=== PATIENT | female | born 1990 | race American Indian/Alaskan Native ===

== ENCOUNTER 2019-01-09 10:08 | Emergency (ER) | payer MEDICAID ==
[2019-01-09 10:14] VITALS: BP 147/97
[2019-01-09] MEDS ORDERED: DUONEB *Not for PRN Use IH ONE (10:21)
[2019-01-09] MEDS ORDERED: SOLU-Medrol IV ONE (10:21)
[2019-01-09] MEDS ORDERED: MAGNESIUM SULFATE 2GM/50ML 2 GM/50 ML BAG IV ONE (10:21)
--- NOTE | 2019-01-09 10:26 | Emergency Department Report ---
ED General Adult HPI - General Chief complaint: Dyspnea/Respdistress Stated complaint: ROLDAN Time Seen by Provider: 01/09/19 10:17 Source: patient Mode of arrival: Ambulatory Limitations: No Limitations - History of Present Illness Initial comments: 28-year-old female with worsening asthma for 2 weeks. She states that she ultimately ran out of her medicine but wasn't able to get an appointment with her physician. She relates some chest tightness related to her wheezing which is nonpleuritic and nonradiating. She states that she coughs productive of a clear sputum. She's had no fever or chills leg pain or swelling. She denies other medical history other than asthma. She states her menses have been normal. -: Gradual, week(s) Location: chest Radiation: non-radiation Quality: other Consistency: now resolved Improves with: none Worsens with: other (wheezing) Associated Symptoms: denies other symptoms, chest pain, cough Treatments Prior to Arrival: none (ran out of medicine) - Related Data Previous Rx's Medication Instructions Recorded Last Taken Type ALBUTEROL NEB's [Proventil 0.083% 2.5 mg IH TID PRN #60 neb 01/09/19 Unknown Rx NEBS] Albuterol Sulfate [Proventil Hfa] 6.7 gm IH Q4H PRN #1 hfa.aer.ad 01/09/19 Unknown Rx Azithromycin [Zithromax Z-PEÑA] 250 mg PO DAILY #1 tablet 01/09/19 Unknown Rx Mometasone Furoate [Asmanex Hfa] 13 gm IH DAILY #1 hfa.aer.ad 01/09/19 Unknown Rx predniSONE [Deltasone] 40 mg PO QDAY #14 tab 01/09/19 Unknown Rx Allergies Allergy/AdvReac Type Severity Reaction Status Date / Time No Known Allergies Allergy Unverified 01/09/19 10:10 ED Review of Systems ROS: Stated complaint: ROLDAN Other details as noted in HPI Constitutional: denies: chills, fever Eyes: denies: eye pain, eye discharge, vision change ENT: denies: ear pain, throat pain Respiratory: cough (clear sputum), wheezing. denies: shortness of breath Cardiovascular: as per HPI, chest pain. denies: palpitations Endocrine: no symptoms reported Gastrointestinal: denies: abdominal pain, nausea, diarrhea Genitourinary: denies: urgency, dysuria, discharge Musculoskeletal: denies: back pain, joint swelling, arthralgia Skin: denies: rash, lesions Neurological: denies: headache, weakness, paresthesias Psychiatric: denies: anxiety, depression Hematological/Lymphatic: denies: easy bleeding, easy bruising ED Past Medical Hx - Past Medical History Hx Asthma: Yes - Social History Smoking Status: Never Smoker Substance Use Type: None - Medications Home Medications: Home Medications Medication Instructions Recorded Confirmed Last Taken Type ALBUTEROL NEB's [Proventil 0.083% 2.5 mg IH TID PRN #60 neb 01/09/19 Unknown Rx NEBS] Albuterol Sulfate [Proventil Hfa] 6.7 gm IH Q4H PRN #1 hfa.aer.ad 01/09/19 Unknown Rx Azithromycin [Zithromax Z-PEÑA] 250 mg PO DAILY #1 tablet 01/09/19 Unknown Rx Mometasone Furoate [Asmanex Hfa] 13 gm IH DAILY #1 hfa.aer.ad 01/09/19 Unknown Rx predniSONE [Deltasone] 40 mg PO QDAY #14 tab 01/09/19 Unknown Rx ED Physical Exam - General Limitations: No Limitations General appearance: alert, in no apparent distress - Head Head exam: Present: atraumatic, normocephalic - Eye Eye exam: Present: normal appearance - ENT ENT exam: Present: mucous membranes moist - Neck Neck exam: Present: normal inspection - Respiratory Respiratory exam: Present: wheezes (bilateral), prolonged expiratory. Absent: respiratory distress - Cardiovascular Cardiovascular Exam: Present: regular rate, normal rhythm. Absent: systolic murmur, diastolic murmur, rubs, gallop - GI/Abdominal GI/Abdominal exam: Present: soft, normal bowel sounds. Absent: distended, tenderness, guarding - Extremities Exam Extremities exam: Present: normal inspection. Absent: tenderness, pedal edema, calf tenderness - Back Exam Back exam: Present: normal inspection - Neurological Exam Neurological exam: Present: alert, oriented X3, CN II-XII intact. Absent: motor sensory deficit - Psychiatric Psychiatric exam: Present: normal affect, normal mood - Skin Skin exam: Present: warm, dry, intact, normal color. Absent: rash ED Course Vital Signs 01/09/19 01/09/19 01/09/19 10:11 10:25 12:55 Temperature 98.4 F Pulse Rate 109 H 107 H Pulse Rate [ 103 H Posterior Bilateral Throughout] Respiratory 22 Rate Respiratory 22 Rate [Posterior Bilateral Throughout] Blood Pressure 147/97 O2 Sat by Pulse 93 95 Oximetry - Reevaluation(s) Reevaluation #1: Wheezing much improved. Patient was road tested. She did not get short of breath or exacerbate. She stated she was ready to go home. She had minimal residual wheeze on the left greater than right but no rales or rhonchi. 01/09/19 13:31 Critical care attestation.: If time is entered above; I have spent that time in minutes in the direct care of this critically ill patient, excluding procedure time. ED Disposition Clinical Impression: Exacerbation of asthma Qualifiers: Asthma severity: moderate Asthma persistence: persistent Qualified Code(s): J45.41 - Moderate persistent asthma with (acute) exacerbation Disposition: DC- TO HOME OR SELFCARE Is pt being admited?: No Does the pt Need Aspirin: No Condition: Stable Instructions: Asthma (ED) Additional Instructions: Return any acute change or worsening symptoms. Rx as directed. Prescriptions: Mometasone Furoate [Asmanex Hfa] 13 gm IH DAILY #1 hfa.aer.ad predniSONE [Deltasone] 40 mg PO QDAY #14 tab ALBUTEROL NEB's [Proventil 0.083% NEBS] 2.5 mg IH TID PRN #60 neb PRN Reason: Wheezing Albuterol Sulfate [Proventil Hfa] 6.7 gm IH Q4H PRN #1 hfa.aer.ad PRN Reason: Wheezing Azithromycin [Zithromax Z-PEÑA] 250 mg PO DAILY #1 tablet Referrals: KOLE NICOLE MD [Primary Care Provider] - 2-3 Days [facility] [Provider Group] - 3-5 Days Time of Disposition: 13:34
[2019-01-09] MEDS ORDERED: PROVENTIL IH ONE (11:56)
== END 2019-01-09 14:07 | disposition home or self-care (01) ==
LOC: ED 10:08
DX: J45.901 Unspecified asthma with (acute) exacerbation (principal); Z79.899 Other long term (current) drug therapy
CPT/HCPCS: 93005; 93010; 94640; 96365; 96375; 99283; J2930; J3475; 94644

== ENCOUNTER 2019-04-03 12:32 | Emergency (ER) | payer MEDICAID ==
[2019-04-03] MEDS ORDERED: dexAMETHasone 20 MG/5 ML VIAL IM ONE (12:36)
[2019-04-03] MEDS ORDERED: IPRATROPIUM 0.02% NEBU 2.5 ML IH ONE (12:36)
[2019-04-03] MEDS ORDERED: ALBUTEROL 2.5 MG/3 ML NEBU IH ONE (12:36)
--- NOTE | 2019-04-03 12:36 | Emergency Department Report ---
Blank Doc - Documentation Documentation: 28-year-old female that presents with SOB with wheezing. This initial assessment/diagnostic orders/clinical plan/treatment(s) is/are subject to change based on patient's health status, clinical progression and re- assessment by fellow clinical providers in the ED. Further treatment and workup at subsequent clinical providers discretion. Patient/guardians urged not to elope from the ED as their condition may be serious if not clinically assessed and managed. Initial orders include: 1- Patient sent to [facility] for further evaluation and treatment 2- breathing treatment/steroids
--- NOTE | 2019-04-03 13:00 | Emergency Department Report ---
ED General Adult HPI - General Chief complaint: Dyspnea/Respdistress Stated complaint: SOB/CP/ASTHMA Time Seen by Provider: 04/03/19 12:35 Source: patient Mode of arrival: Ambulatory Limitations: No Limitations - History of Present Illness Initial comments: This is a 28-year-old female with asthma who states that she couldn't find her inhaler this morning. She states that her asthma had flared up since 8 AM. She reports having to come to the emergency department for asthma before. She states she's never been hospitalized. She is not currently on steroids. She does not have a home neb machine. -: hour(s) Improves with: none Worsens with: none Associated Symptoms: denies other symptoms, cough (nonproductive) - Related Data Previous Rx's Medication Instructions Recorded Last Taken Type ALBUTEROL NEB's [Proventil 0.083% 2.5 mg IH TID PRN #60 neb 04/03/19 Unknown Rx NEBS] Albuterol Sulfate [Proventil Hfa] 6.7 gm IH Q4H PRN #1 hfa.aer.ad 04/03/19 Unknown Rx Azithromycin [Zithromax Z-PEÑA] 250 mg PO DAILY #1 tablet 04/03/19 Unknown Rx Mometasone Furoate [Asmanex Hfa] 13 gm IH DAILY #1 hfa.aer.ad 04/03/19 Unknown Rx predniSONE [Deltasone] 60 mg PO QDAY #20 tab 04/03/19 Unknown Rx Allergies Allergy/AdvReac Type Severity Reaction Status Date / Time No Known Allergies Allergy Unverified 01/09/19 10:10 ED Review of Systems ROS: Stated complaint: SOB/CP/ASTHMA Other details as noted in HPI Constitutional: denies: chills, fever Eyes: denies: eye pain, eye discharge, vision change ENT: denies: ear pain, throat pain Respiratory: cough (occasional), wheezing Cardiovascular: denies: chest pain, palpitations Endocrine: no symptoms reported Gastrointestinal: denies: abdominal pain, nausea, diarrhea Genitourinary: denies: urgency, dysuria, discharge Musculoskeletal: denies: back pain, joint swelling, arthralgia Skin: denies: rash, lesions Neurological: denies: headache, weakness, paresthesias Psychiatric: denies: anxiety, depression Hematological/Lymphatic: denies: easy bleeding, easy bruising ED Past Medical Hx - Past Medical History Previous Medical History?: Yes Hx Asthma: Yes - Surgical History Past Surgical History?: Yes - Social History Smoking Status: Never Smoker Substance Use Type: None - Medications Home Medications: Home Medications Medication Instructions Recorded Confirmed Last Taken Type ALBUTEROL NEB's [Proventil 0.083% 2.5 mg IH TID PRN #60 neb 04/03/19 Unknown Rx NEBS] Albuterol Sulfate [Proventil Hfa] 6.7 gm IH Q4H PRN #1 hfa.aer.ad 04/03/19 Unknown Rx Azithromycin [Zithromax Z-PEÑA] 250 mg PO DAILY #1 tablet 04/03/19 Unknown Rx Mometasone Furoate [Asmanex Hfa] 13 gm IH DAILY #1 hfa.aer.ad 04/03/19 Unknown Rx predniSONE [Deltasone] 60 mg PO QDAY #20 tab 04/03/19 Unknown Rx ED Physical Exam - General Limitations: No Limitations General appearance: alert, in no apparent distress - Head Head exam: Present: atraumatic, normocephalic - Eye Eye exam: Present: normal appearance - ENT ENT exam: Present: mucous membranes moist - Neck Neck exam: Present: normal inspection - Respiratory Respiratory exam: Present: wheezes. Absent: normal lung sounds bilaterally, respiratory distress - Cardiovascular Cardiovascular Exam: Present: regular rate, normal rhythm. Absent: systolic murmur, diastolic murmur, rubs, gallop - GI/Abdominal GI/Abdominal exam: Present: soft, normal bowel sounds. Absent: distended, tend erness, guarding, rebound - Extremities Exam Extremities exam: Present: normal inspection. Absent: pedal edema, calf tenderness - Back Exam Back exam: Present: normal inspection - Neurological Exam Neurological exam: Present: alert, oriented X3, CN II-XII intact. Absent: motor sensory deficit - Psychiatric Psychiatric exam: Present: normal affect, normal mood - Skin Skin exam: Present: warm, dry, intact, normal color. Absent: rash ED Course Vital Signs 04/03/19 04/03/19 04/03/19 12:38 14:30 16:04 Temperature 97.5 F L Pulse Rate 113 H 94 H Respiratory 18 22 18 Rate Blood Pressure 148/126 Blood Pressure 149/96 [Right] O2 Sat by Pulse 100 92 96 Oximetry - Reevaluation(s) Reevaluation #1: Earlier the patient was offered admission as she had persistent wheezing. She declined. She is aware of the risks and benefits. She states she has no way to get childcare. She is here with her son. In addition, she did not want to be admitted. Patient was given an additional labs. Her pulse oximetry is now 96% on room air. Her blood pressure has improved. Her wheezing has improved. Chest x-ray showed no acute process. 04/03/19 16:30 Reevaluation #2: Accu-Chek is 107. 04/03/19 16:33 ED Medical Decision Making - Radiology Data Radiology results: image reviewed (no acute process) Critical care attestation.: If time is entered above; I have spent that time in minutes in the direct care of this critically ill patient, excluding procedure time. ED Disposition Clinical Impression: Acute severe exacerbation of asthma Disposition: DC-01 TO HOME OR SELFCARE Is pt being admited?: No Does the pt Need Aspirin: No Condition: Stable Instructions: Asthma (ED) Additional Instructions: Return as needed if treatment is not effective. Otherwise follow-up with [facility]. Prescriptions: Mometasone Furoate [Asmanex Hfa] 13 gm IH DAILY #1 hfa.aer.ad predniSONE [Deltasone] 60 mg PO QDAY #20 tab ALBUTEROL NEB's [Proventil 0.083% NEBS] 2.5 mg IH TID PRN #60 neb PRN Reason: Wheezing Albuterol Sulfate [Proventil Hfa] 6.7 gm IH Q4H PRN #1 hfa.aer.ad PRN Reason: Wheezing Azithromycin [Zithromax Z-PEÑA] 250 mg PO DAILY #1 tablet Referrals: PRIMARY CAREMD [Primary Care Provider] - 3-5 Days [facility] [Provider Group] - 24 Hours
[2019-04-03] MEDS ORDERED: IPRATROPIUM/ALBUTEROL SULFATE 3 ML AMPUL.NEB IH ONE (14:34)
[2019-04-03 16:47] VITALS: BP 144/94
--- NOTE | 2019-04-03 16:55 | XRay Report ---
CHEST 1 VIEW INDICATION / CLINICAL INFORMATION: hypertension. Wheezing COMPARISON: 05/03/2012 chest radiograph FINDINGS: SUPPORT DEVICES: None. HEART / MEDIASTINUM: No significant abnormality. LUNGS / PLEURA: No significant pulmonary or pleural abnormality. No pneumothorax. IMPRESSION: 1. No acute finding. Signer Name: Derik Del Toro MD Signed: 04/03/2019 4:51 PM Workstation Name: [id number]
== END 2019-04-03 16:46 | disposition home or self-care (01) ==
LOC: ED 12:32
DX: J45.901 Unspecified asthma with (acute) exacerbation (principal)
CPT/HCPCS: 71045; 82962; 96372; 99284; J1100

== ENCOUNTER 2020-05-21 00:14 | Emergency (ER) | payer SELFPAY ==
[2020-05-21] MEDS ORDERED: IPRATROPIUM 0.02% NEBU 2.5 ML IH ONE ×2 (00:24→00:25)
[2020-05-21] MEDS ORDERED: MAGNESIUM SULFATE 2 GM/50 ML BAG IV ONE (00:24)
[2020-05-21] MEDS ORDERED: ALBUTEROL 2.5 MG/3 ML NEBU IH ONE ×2 (00:24)
[2020-05-21] MEDS ORDERED: methylPREDNISolone Sod Succinate 125 MG/2 ML INJ IV ONE (00:24)
--- NOTE | 2020-05-21 00:28 | Emergency Department Report ---
ED Shortness of Breath HPI - General Chief Complaint: Dyspnea/Respdistress Stated Complaint: ROLDAN Time Seen by Provider: 05/21/20 00:20 Source: patient Mode of arrival: Ambulatory Limitations: No Limitations - History of Present Illness Initial Comments: 30-year-old female, history of asthma, presents to ED with wheezing and shortness of breath x1 day. 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 Believes this is what has triggered her asthma. Patient states she ran out of her albuterol inhaler on yesterday. She reports a cough which is typical when she has asthma exacerbations. She denies any fever, vomiting, diarrhea, loss of smell or taste, known exposure to anyone who is tested positive for COVID-19. Complaint: "asthma attack" -: days(s) (1) Severity: moderate Consistency: constant Improves With: nothing Worsens With: exertion Known History Of: asthma Context: allergen exposure Associated Symptoms: cough Treatments Prior to Arrival: none - Related Data Previous Rx's Medication Instructions Recorded Last Taken Type ALBUTEROL NEB's [Proventil 0.083% 2.5 mg IH TID PRN #60 neb 04/03/19 Unknown Rx NEBS] Albuterol Sulfate [Proventil Hfa] 6.7 gm IH Q4H PRN #1 hfa.aer.ad 04/03/19 Unknown Rx Amlodipine Besylate [Norvasc] 2.5 mg PO DAILY #30 tablet 04/03/19 Unknown Rx Azithromycin [Zithromax Z-PEÑA] 250 mg PO DAILY #1 tablet 04/03/19 Unknown Rx Mometasone Furoate [Asmanex Hfa] 13 gm IH DAILY #1 hfa.aer.ad 04/03/19 Unknown Rx predniSONE [Deltasone] 60 mg PO QDAY #20 tab 04/03/19 Unknown Rx Albuterol Sulfate [Proventil Hfa] 2 puff IH Q4HR PRN #1 hfa.aer.ad 05/21/20 Unknown Rx predniSONE [Deltasone] 50 mg PO QDAY #5 tab 05/21/20 Unknown Rx Allergies Allergy/AdvReac Type Severity Reaction Status Date / Time No Known Allergies Allergy Verified 05/21/20 00:18 ED Review of Systems ROS: Stated complaint: ROLDAN Other details as noted in HPI Comment: All other systems reviewed and negative Constitutional: denies: chills, fever ENT: other (Denies loss of smell or taste) Respiratory: cough, shortness of breath, wheezing Gastrointestinal: denies: vomiting, diarrhea ED Past Medical Hx - Past Medical History Previous Medical History?: Yes Hx Asthma: Yes - Surgical History Past Surgical History?: No - Social History Smoking Status: Never Smoker - Medications Home Medications: Home Medications Medication Instructions Recorded Confirmed Last Taken Type ALBUTEROL NEB's [Proventil 0.083% 2.5 mg IH TID PRN #60 neb 04/03/19 Unknown Rx NEBS] Albuterol Sulfate [Proventil Hfa] 6.7 gm IH Q4H PRN #1 hfa.aer.ad 04/03/19 Unknown Rx Amlodipine Besylate [Norvasc] 2.5 mg PO DAILY #30 tablet 04/03/19 Unknown Rx Azithromycin [Zithromax Z-PEÑA] 250 mg PO DAILY #1 tablet 04/03/19 Unknown Rx Mometasone Furoate [Asmanex Hfa] 13 gm IH DAILY #1 hfa.aer.ad 04/03/19 Unknown Rx predniSONE [Deltasone] 60 mg PO QDAY #20 tab 04/03/19 Unknown Rx Albuterol Sulfate [Proventil Hfa] 2 puff IH Q4HR PRN #1 hfa.aer.ad 05/21/20 Unknown Rx predniSONE [Deltasone] 50 mg PO QDAY #5 tab 05/21/20 Unknown Rx ED Physical Exam - General Limitations: No Limitations General appearance: alert, obese - Head Head exam: Present: atraumatic, normocephalic - Eye Eye exam: Present: normal appearance, EOMI - ENT ENT exam: Present: mucous membranes moist - Neck Neck exam: Present: normal inspection - Respiratory Respiratory exam: Present: respiratory distress, wheezes - Cardiovascular Cardiovascular Exam: Present: normal rhythm, tachycardia - GI/Abdominal GI/Abdominal exam: Present: soft. Absent: distended, tenderness - Extremities Exam Extremities exam: Present: normal inspection - Neurological Exam Neurological exam: Present: alert, oriented X3 - Psychiatric Psychiatric exam: Present: normal affect - Skin Skin exam: Present: warm, dry, intact, normal color ED Course Vital Signs 05/21/20 05/21/20 00:18 00:35 Temperature 97.6 F Pulse Rate 103 H Pulse Rate [ 120 H Bilateral Throughout] Respiratory 24 Rate Respiratory 21 Rate [Bilateral Throughout] Blood Pressure 187/113 [Right] O2 Sat by Pulse 90 Oximetry ED Medical Decision Making - Radiology Data Radiology results: report reviewed, image reviewed - Medical Decision Making 30-year-old female presents to ED with acute asthma exacerbation. Patient was given a 1 hour neb, Solu-Medrol, and mag sulfate. Patient is feeling much better at this time wheezing has resolved, patient sleeping comfortably. O2 sats have improved from 90% on room air to 95% on room air. Chest x-ray is negative for any acute findings. Patient will be discharged at this time with prescriptions. Return precautions given, outpatient follow-up advised. - Differential Diagnosis Asthma, pneumonia, pulmonary edema Critical care attestation.: If time is entered above; I have spent that time in minutes in the direct care of this critically ill patient, excluding procedure time. ED Disposition Clinical Impression: Acute asthma exacerbation Disposition: TO HOME OR SELFCARE Is pt being admited?: No Condition: Stable Instructions: Asthma Attack Prevention, Adult Prescriptions: predniSONE [Deltasone] 50 mg PO QDAY #5 tab Albuterol Sulfate [Proventil Hfa] 2 puff IH Q4HR PRN #1 hfa.aer.ad PRN Reason: Wheezing Referrals: PRIMARY CARE, [Primary Care Provider] - 3-5 Days Time of Disposition: 01:30
--- NOTE | 2020-05-21 01:21 | XRay Report ---
CHEST 1 VIEW 05/21/2020 12:30 AM INDICATION / CLINICAL INFORMATION: sob, wheezing, asthma. COMPARISON: 04/03/2019 FINDINGS: SUPPORT DEVICES: None. HEART / MEDIASTINUM: No significant abnormality. LUNGS / PLEURA: No significant pulmonary or pleural abnormality. No pneumothorax. ADDITIONAL FINDINGS: No significant additional findings. IMPRESSION: 1. No acute findings. Signer Name: Laron Lombardo MD Signed: 05/21/2020 1:17 AM Workstation Name: [id number]
[2020-05-21 03:57] VITALS: BP 131/56
== END 2020-05-21 03:39 | disposition home or self-care (01) ==
LOC: ED 00:14
DX: J45.901 Unspecified asthma with (acute) exacerbation (principal); Z79.899 Other long term (current) drug therapy
CPT/HCPCS: 71045; 94640; 96365; 96375; 99283; J2930; J3475; 94644

== ENCOUNTER 2020-08-18 02:15 | Emergency (ER) | payer SELFPAY ==
[2020-08-18] MEDS ORDERED: ALBUTEROL 2.5 MG/3 ML NEBU IH ONE (02:48)
[2020-08-18] MEDS ORDERED: IPRATROPIUM 0.02% NEBU 2.5 ML IH ONE (02:48)
[2020-08-18] MEDS ORDERED: predniSONE 20 MG TAB PO ONE (02:49)
[2020-08-18] MEDS ORDERED: ACETAMINOPHEN 500 MG TAB PO ONE (02:49)
--- NOTE | 2020-08-18 02:52 | Emergency Department Report ---
ED Shortness of Breath HPI - General Stated Complaint: SOB/ASTHMA - History of Present Illness Initial Comments: Patient is a 30-year-old -[place] female with a history of asthma and morbid obesity presents to the ED with complaint of acute onset persistent severe shortness of breath, persistent dry cough and pleuritic chest tightness and pain for the last 8 hours despite using her albuterol inhaler at home. Patient states that her symptoms worsened in the last 3 hours after she ran out of all her albuterol inhaler. Patient denies dizziness, syncope, fever, chills, nausea, vomiting, nasal and sinus congestion, back pain, abdominal pain, change in vision, sore throat, diarrhea or headache, neck pain or palpitations. MD Complaint: shortness of breath, cough, chest pain, "asthma attack" -: Sudden, hour(s) (8) Radiation: other (chest) Severity: severe Pain Scale: 7 Quality: aching, other (chest tightness) Consistency: constant Improves With: bronchodilators Worsens With: movement Known History Of: asthma Context: allergen exposure Associated Symptoms: chest pain, cough Treatments Prior to Arrival: bronchodilator - Related Data Home Oxygen Therapy: No Previous Rx's Medication Instructions Recorded Last Taken Type Amlodipine Besylate [Norvasc] 2.5 mg PO DAILY #30 tablet 04/03/19 Unknown Rx Azithromycin [Zithromax Z-PEÑA] 250 mg PO DAILY #1 tablet 04/03/19 Unknown Rx Mometasone Furoate [Asmanex Hfa] 13 gm IH DAILY #1 hfa.aer.ad 04/03/19 Unknown Rx predniSONE [Deltasone] 60 mg PO QDAY #20 tab 04/03/19 Unknown Rx Albuterol Sulfate [Proventil Hfa] 2 puff IH Q4HR PRN #1 hfa.aer.ad 05/21/20 Unknown Rx predniSONE [Deltasone] 50 mg PO QDAY #5 tab 05/21/20 Unknown Rx ALBUTEROL NEB's [Proventil 0.083% 3 ml IH Q6H PRN #75 ml 08/18/20 Unknown Rx NEBS] Albuterol Sulfate [Proventil Hfa] 1 - 2 puff IH Q4H PRN #1 hfa.aer.ad 08/18/20 Unknown Rx Benzonatate [Tessalon Perles] 100 mg PO Q8HR #30 capsule 04/24/21 Unknown Rx Cetirizine HCl [Zyrtec 10mg tab] 10 mg PO DAILY #30 tablet 08/18/20 Unknown Rx Prednisone [predniSONE 10 mg 10 mg PO .TAPER #21 tab.ds.pk 08/18/20 Unknown Rx (6-Day Pack, 21 Tabs)] Allergies Allergy/AdvReac Type Severity Reaction Status Date / Time No Known Allergies Allergy Verified 05/21/20 00:18 ED Review of Systems ROS: Stated complaint: SOB/ASTHMA Other details as noted in HPI Constitutional: denies: chills, fever Eyes: denies: eye pain, eye discharge, vision change ENT: denies: ear pain, throat pain, congestion Respiratory: cough, shortness of breath, wheezing Cardiovascular: denies: chest pain, palpitations Endocrine: no symptoms reported Gastrointestinal: denies: abdominal pain, nausea, diarrhea Genitourinary: denies: urgency, dysuria, discharge Musculoskeletal: denies: back pain, joint swelling, arthralgia Skin: denies: rash, lesions Neurological: denies: headache, weakness, paresthesias Psychiatric: denies: anxiety, depression Hematological/Lymphatic: denies: easy bleeding, easy bruising ED Past Medical Hx - Past Medical History Hx Asthma: Yes - Social History Smoking Status: Never Smoker - Medications Home Medications: Home Medications Medication Instructions Recorded Confirmed Last Taken Type Amlodipine Besylate [Norvasc] 2.5 mg PO DAILY #30 tablet 04/03/19 Unknown Rx Azithromycin [Zithromax Z-PEÑA] 250 mg PO DAILY #1 tablet 04/03/19 Unknown Rx Mometasone Furoate [Asmanex Hfa] 13 gm IH DAILY #1 hfa.aer.ad 04/03/19 Unknown Rx predniSONE [Deltasone] 60 mg PO QDAY #20 tab 04/03/19 Unknown Rx Albuterol Sulfate [Proventil Hfa] 2 puff IH Q4HR PRN #1 hfa.aer.ad 05/21/20 Unknown Rx predniSONE [Deltasone] 50 mg PO QDAY #5 tab 05/21/20 Unknown Rx ALBUTEROL NEB's [Proventil 0.083% 3 ml IH Q6H PRN #75 ml 08/18/20 Unknown Rx NEBS] Albuterol Sulfate [Proventil Hfa] 1 - 2 puff IH Q4H PRN #1 hfa.aer.ad 08/18/20 Unknown Rx Benzonatate [Tessalon Perles] 100 mg PO Q8HR #30 capsule 08/18/20 Unknown Rx Cetirizine HCl [Zyrtec 10mg tab] 10 mg PO DAILY #30 tablet 08/18/20 Unknown Rx Prednisone [predniSONE 10 mg 10 mg PO .TAPER #21 tab.ds.pk 08/18/20 Unknown Rx (6-Day Pack, 21 Tabs)] ED Physical Exam - General General appearance: alert, in no apparent distress - Head Head exam: Present: atraumatic, normocephalic, normal inspection - Eye Eye exam: Present: normal appearance, PERRL, EOMI Pupils: Present: normal accommodation - ENT ENT exam: Present: normal exam, normal orophraynx, mucous membranes moist, TM's normal bilaterally, normal external ear exam - Neck Neck exam: Present: normal inspection, full ROM - Respiratory Respiratory exam: Present: wheezes (Diffuse coarse wheezes throughout). Absent: respiratory distress, rales, rhonchi, stridor, chest wall tenderness, accessory muscle use, decreased breath sounds, prolonged expiratory - Cardiovascular Cardiovascular Exam: Present: regular rate, normal rhythm, normal heart sounds. Absent: systolic murmur, diastolic murmur, rubs, gallop - GI/Abdominal GI/Abdominal exam: Present: soft, normal bowel sounds. Absent: tenderness, guarding, rebound, hyperactive bowel sounds, hypoactive bowel sounds, mass - Extremities Exam Extremities exam: Present: normal inspection, full ROM, normal capillary refill - Back Exam Back exam: Present: normal inspection, full ROM. Absent: tenderness, CVA tenderness (R), CVA tenderness (L), muscle spasm, paraspinal tenderness, vertebral tenderness - Neurological Exam Neurological exam: Present: alert, oriented X3, CN II-XII intact, normal gait, reflexes normal - Psychiatric Psychiatric exam: Present: normal affect, normal mood - Skin Skin exam: Present: warm, dry, intact, normal color. Absent: rash ED Course Vital Signs 08/18/20 02:51 Temperature 98.1 F Pulse Rate 90 Respiratory 18 Rate Blood Pressure 187/90 O2 Sat by Pulse 100 Oximetry ED Medical Decision Making - Radiology Data Radiology results: report reviewed, image reviewed [address] [place] [address] XRay Report Signed Patient: ULICES DOWNS MR#: [id number] : 1990 Acct:[id number] Age/Sex: 30 / F ADM Date: 08/18/20 Loc: ED Attending Dr: Ordering Physician: JEANNIE GARAY Date of Service: 08/18/20 Procedure(s): XR chest 1V ap Accession Number(s): [id number] cc: JEANNIE GARAY Fluoro Time In Minutes: CHEST 1 VIEW 08/18/2020 3:06 AM INDICATION / CLINICAL INFORMATION: Dyspnea and asthma. COMPARISON: 05/21/20. FINDINGS: SUPPORT DEVICES: None. HEART / MEDIASTINUM: The heart size and pulmonary vasculature are normal. LUNGS / PLEURA: No significant pulmonary or pleural abnormality. No pneumoth orax. ADDITIONAL FINDINGS: No significant additional findings. IMPRESSION: No acute abnormality or significant change. Signer Name: Sami Ho MD Signed: 08/18/2020 3:28 AM Workstation Name: [id number] Transcribed By: RT Dictated By: Sami Ho MD Electronically Authenticated By: Sami Ho MD Signed Date/Time: 08/18/20327 DD/ 7 TD/TT: - Medical Decision Making This is a 30-year-old -[place] female with a history of asthma and morbid obesity presents to the ED with complaint of acute onset persistent severe shortness of breath, persistent dry cough and pleuritic chest tightness and pain for the last 8 hours despite using her albuterol inhaler at home. Patient states that her symptoms worsened in the last 3 hours after she ran out of all her albuterol inhaler. In the ED, patient is alert and oriented x3 and is not in any distress. Patient was treated in the ED with DuoNeb, oral prednisone and on reevaluation, patient's wheezing resolved and shortness of breath also resolved. Chest x-ray showed no acute cardiopulmonary abnormalities or pneumonitis. Patient was therefore discharged home on a refill of her bronchodilator medications as well as prednisone Dosepak to take for her asthma exacerbation. At the time the patient was discharged, her oxygen saturation was 99% in room air. Patient was advised to follow-up with her primary care physician in 3 to 5 days for reevaluation or return to the ED immediately if symptoms get worse. - Differential Diagnosis Asthma; bronchitis; pneumonia; URI; viral syndrome Critical care attestation.: If time is entered above; I have spent that time in minutes in the direct care of this critically ill patient, excluding procedure time. ED Disposition Clinical Impression: Acute bronchitis with asthma with acute exacerbation, Shortness of breath Disposition: TO HOME OR SELFCARE Is pt being admited?: No Does the pt Need Aspirin: No Condition: Stable Instructions: Shortness of Breath, Adult, [id number], Cough, Adult, [id number], Acute Bronchitis, Adult, [id number], Asthma, Adult, [id number], Acute Bronchitis (ED) Additional Instructions: Chest x-ray shows no acute cardiopulmonary abnormalities or pneumonitis. Your symptoms are due to acute asthma exacerbation. Therefore take medications with food, drink plenty of fluids and follow-up with your primary care physician in 5 to 7 days for reevaluation. Return to the ED immediately if symptoms get worse. Prescriptions: Prednisone [predniSONE 10 mg (6-Day Pack, 21 Tabs)] 10 mg PO .TAPER #21 tab.ds.pk ALBUTEROL NEB's [Proventil 0.083% NEBS] 3 ml IH Q6H PRN #75 ml PRN Reason: Wheezing Albuterol Sulfate [Proventil Hfa] 1 - 2 puff IH Q4H PRN #1 hfa.aer.ad PRN Reason: Wheezing Benzonatate [Tessalon Perles] 100 mg PO Q8HR #30 capsule Cetirizine HCl [Zyrtec 10mg tab] 10 mg PO DAILY #30 tablet Referrals: [facility] [Provider Group] - 3-5 Days Time of Disposition: 03:47 Print Language: [place]
--- NOTE | 2020-08-18 03:33 | XRay Report ---
CHEST 1 VIEW 08/18/2020 3:06 AM INDICATION / CLINICAL INFORMATION: Dyspnea and asthma. COMPARISON: 05/21/20. FINDINGS: SUPPORT DEVICES: None. HEART / MEDIASTINUM: The heart size and pulmonary vasculature are normal. LUNGS / PLEURA: No significant pulmonary or pleural abnormality. No pneumothorax. ADDITIONAL FINDINGS: No significant additional findings. IMPRESSION: No acute abnormality or significant change. Signer Name: Sami Ho MD Signed: 08/18/2020 3:28 AM Workstation Name: [id number]
[2020-08-18 06:01] VITALS: BP 187/90
== END 2020-08-18 05:30 | disposition home or self-care (01) ==
LOC: ED 02:15
DX: J45.901 Unspecified asthma with (acute) exacerbation (principal); Z79.899 Other long term (current) drug therapy
CPT/HCPCS: 71045; 94640; 99283